=== PATIENT | female | born 1965 | race Caucasian/White ===

== ENCOUNTER 2018-06-12 03:35 | Outpatient (CLI) | payer SELFPAY ==
[~2018-06-12 03:35] MED LIST: LEVO25TA7 PO; NAPR220T67 PO
[2018-06-12 08:55] LABS: HEMOGLOBIN A1C 6.1 % (4.5-6.2)
[2018-06-12 09:05] LABS: CHOL/HDL RATIO 2.39 (0.00-4.99)
== END 2018-06-12 23:59 | disposition home or self-care (01) ==
LOC: HW HEART 03:35
DX: Z13.6 Encounter for screening for cardiovascular disorders (principal); Z90.710 Acquired absence of both cervix and uterus
CPT/HCPCS: 36415

== ENCOUNTER 2020-02-25 04:29 | Outpatient (CLI) | payer SELFPAY ==
[2020-02-25 08:41] LABS: HEMOGLOBIN A1C 6.1 % (4.5-6.2)
[2020-02-25 08:56] LABS: CHOL/HDL RATIO 2.72 (0.00-4.99)
== END 2020-02-25 23:59 | disposition home or self-care (01) ==
LOC: HW HEART 04:29
DX: Z13.6 Encounter for screening for cardiovascular disorders (principal)
CPT/HCPCS: 36415